=== PATIENT | female | born 1980 | race Caucasian/White ===

== ENCOUNTER 2021-03-05 13:44 | Emergency (ER) | payer MEDICAID ==
[~2021-03-05] VITALS: Ht 144.8 cm; Wt 53.0 kg
[~2021-03-05 13:44] MED LIST: IBUP-1573 PO
[2021-03-05 13:53] VITALS: BP 133/83
[2021-03-05] MEDS ORDERED: HYDR-3965 PO (14:36)
[2021-03-05] MEDS ORDERED: IBUP-1984 PO (14:36)
== END 2021-03-05 14:48 | disposition home or self-care (01) ==
LOC: ER 13:45
DX: M25.552 Pain in left hip (principal)
CPT/HCPCS: 99284

== ENCOUNTER 2022-10-05 20:08 | Emergency (ER) | payer MEDICAID | END 2022-10-05 22:30 | disposition left against medical advice (07) | LOC: ER 20:08 | DX: R51.9 Headache, unspecified (principal); Z53.21 Procedure and treatment not carried out due to patient leaving prior to being seen by health care provider ==